=== PATIENT | female | born 1975 | race Caucasian/White ===

== ENCOUNTER 2025-01-06 18:40 | Emergency (ER) | payer BC ==
[~2025-01-06] VITALS: Ht 167.6 cm; Wt 46.7 kg
[2025-01-06 18:47] VITALS: PULSE 77; RESP 18; TEMP 98.5
[2025-01-06] MEDS: KETOROLAC TROMETHAMINE 30 MG/ML VIAL IV STA (19:40)
[2025-01-06] MEDS ORDERED: KETOROLAC TROME10 MG PO (20:30)
[2025-01-06] MEDS ORDERED: PREDNISONE20 MG PO (20:30)
[2025-01-06] MEDS ORDERED: AUGMENTIN 500-1 EACH PO (20:30)
[2025-01-06 20:59] VITALS: BP 147/86; PULSE 76; RESP 18; TEMP 98.4; O2SAT 100
== END 2025-01-06 20:59 | disposition home or self-care (01) ==
LOC: FSED 18:45
DX: R60.9 Edema, unspecified (principal); M79.89 Other specified soft tissue disorders; L53.9 Erythematous condition, unspecified; R94.31 Abnormal electrocardiogram [ECG] [EKG]
CPT/HCPCS: 71045; 80053; 83880; 84484; 85025; 93005; 93971; 99283; J1885